=== PATIENT | female | born 1980 | race Caucasian/White ===

== ENCOUNTER 2017-09-03 15:03 | Inpatient (IN) | payer MEDICAID ==
[~2017-09-03] VITALS: Ht 30.5 cm; Wt 53.1 kg
[2017-09-03] MEDS ORDERED: SODIUM CHLORIDE 0.9% 1,000 ML IV ONE (15:26)
[2017-09-03] MEDS ORDERED: NALOXONE HCL 1 MG/ML 2ML VIAL IV ONE (15:30)
[2017-09-03 16:28] LABS: BASOPHILS % 0.6 % (0.0-2.0); EOSINOPHILS % 0.2 % (0.0-5.0); HEMATOCRIT. 34.9 % (36.0-48.0); HEMOGLOBIN. 11.6 g/dL (12.0-16.0); LYMPHOCYTES % 16.8 % (20.0-50.0); MEAN CORPUSCULAR HEMOGLOBIN 28.1 pg (28.0-32.0); MEAN CORPUSCULAR VOLUME 84.6 fL (81.0-99.0); MEAN PLATELET VOLUME 8.4 fl (7.4-10.4); NEUTROPHILS % 74.4 % (40.0-76.0); PLATELET 244 x1000/uL (130-400); RED BLOOD CELL COUNT 4.12 mill/uL (4.2-5.4); RED CELL DISTRIBUTION WIDTH 15.6 % (11.6-14.6)
[2017-09-03 16:35] LABS: CHLORIDE 106 mEq/L (98-107)
[2017-09-03 16:38] LABS: HCG SCREEN NEGATIVE
[2017-09-03 16:39] LABS: AMMONIA 32 uMol/L (<32); ETHANOL BLOOD < 10 mg/dL
[2017-09-03 17:06] LABS: CLARITY URINE CLOUDY (CLEAR); COLOR URINE YELLOW (YELLOW); KETONES URINE NEGATIVE (NEGATIVE); LEUKOCYTE ESTERASE URINE 3+ (NEGATIVE); NITRITE URINE POSITIVE (NEGATIVE); OCCULT BLOOD URINE 3+ (NEGATIVE); PROTEIN URINE TRACE (NEGATIVE); SPECIFIC GRAVITY URINE 1.008 (1.005-1.030); UROBILINOGEN URINE 0.2 E.U./dL (0.2-1.0)
[2017-09-03 17:15] LABS: *BENZODIAZEPINES SCREEN URINE NEGATIVE (NEGATIVE); *COCAINE SCREEN URINE NEGATIVE (NEGATIVE); METHADONE URINE SCREEN NEGATIVE (NEGATIVE); OPIATES URINE SCREEN NEGATIVE (NEGATIVE); PHENCYCLIDINE URINE SCREEN NEGATIVE (NEGATIVE)
[2017-09-03 17:17] LABS: *BARBITURATES SCREEN URINE NEGATIVE (NEGATIVE); CANNABINOID URINE SCREEN NEGATIVE (NEGATIVE)
[2017-09-03 17:21] LABS: *AMPHETAMINES SCREEN URINE PRESUMTIVE POSITIVE (NEGATIVE)
[2017-09-03] MEDS ORDERED: KCL 20MEQ/100ML PREMIX 100 ML IV ONE (17:45)
[2017-09-03] MEDS ORDERED: CEFTRIAXONE 1 G PREMIX 50 ML IV ONE (17:45)
[2017-09-03] MEDS ORDERED: LORAZEPAM 2MG/ML CPJ IV ONE (20:00)
[2017-09-04] MEDS ORDERED: CEFTRIAXONE 1 G PREMIX 50 ML IV ONE (14:00)
[2017-09-04] MEDS ORDERED: DOCUSATE SODIUM 100MG CAPSULE PO PRN (15:15)
[2017-09-04] MEDS ORDERED: GUAIFENESIN 200MG/10ML SUGAR FREE UDC PO PRN (15:15)
[2017-09-04] MEDS ORDERED: NA PHOS,M-B/NA PHOS,DI-BA ENEMA 118ML PR PRN (15:15)
[2017-09-04] MEDS ORDERED: DIPHENHYDRAMINE 50MG/ML VIAL IV PRN (15:15)
[2017-09-04] MEDS ORDERED: IPRATROPIUM/ALBUTEROL 0.5-3(2.5)MG/3ML NEB INH PRN (15:15)
[2017-09-04] MEDS ORDERED: LORAZEPAM 0.5MG TABLET PO PRN (15:15)
[2017-09-04] MEDS ORDERED: MAGNESIUM/ALUMINUM HYDROXIDE/SIMETHICONE 30ML UDC PO PRN (15:15)
[2017-09-04] MEDS ORDERED: NITROGLYCERIN 0.4MG TABLET SL SL PRN (15:15)
[2017-09-04] MEDS ORDERED: HALOPERIDOL LACTATE 5MG/ML VIAL IM ONE (15:15)
[2017-09-04] MEDS ORDERED: CLONIDINE 0.1MG TABLET PO PRN (15:15)
[2017-09-04] MEDS ORDERED: ACETAMINOPHEN 325MG TABLET PO PRN (15:15)
[2017-09-04] MEDS ORDERED: HALOPERIDOL LACTATE 5MG/ML VIAL IM PRN (15:15)
[2017-09-04] MEDS ORDERED: KETOROLAC 15MG/ML VIAL IV PRN (15:15)
[2017-09-04] MEDS ORDERED: ONDANSETRON HCL 4MG/2ML VIAL IV PRN (15:15)
[2017-09-04 16:00] VITALS: BP 121/92
[2017-09-04] MEDS ORDERED: ONDANSETRON 4MG ODT PO PRN (16:15)
[2017-09-04] MEDS ORDERED: LEVOFLOXACIN 500MG PREMIX 100 ML IV SCH (18:00)
[2017-09-04 20:00] VITALS: BP 112/78
[2017-09-04] MEDS ORDERED: MVI, ADULT NO.1 10 ML, FOLIC ACID 1 MG, THIAMINE HCL 100 MG in SODIUM CHLORIDE 0.9% 1,0... IV NR ×4 (20:00)
[2017-09-04] MEDS ORDERED: ZOLPIDEM TARTRATE 5MG TABLET PO PRN (21:00)
[2017-09-04] MEDS: FAMOTIDINE 20MG TABLET PO SCH (21:00)
[2017-09-05] VITALS: BP 110/77
[2017-09-05 04:00] VITALS: BP 105/72
[2017-09-05 07:58] VITALS: BP 144/83
[2017-09-05] MEDS: FAMOTIDINE 20MG TABLET PO SCH (08:24)
[2017-09-05 10:26] LABS: CHLORIDE 110 mEq/L (98-107)
== END 2017-09-05 11:35 | disposition home or self-care (01) | DRG 816 ==
LOC: ER 16:20 → EDBD 16:20 → 7WST 09-04 13:45 → EDBEDREQTM 09-04 13:47 → EDBEDREQ 09-04 13:47 → ENRESERV 09-04 14:03
PROVIDERS: ADMIT Internal Medicine; ATTEND Internal Medicine
DX: T40.1X1A Poisoning by heroin, accidental (unintentional), initial encounter (principal); G93.40 Encephalopathy, unspecified; E44.1 Mild protein-calorie malnutrition; Z68.45 Body mass index [BMI] 70 or greater, adult; E87.6 Hypokalemia; N39.0 Urinary tract infection, site not specified; F15.10 Other stimulant abuse, uncomplicated; Z78.1 Physical restraint status; Y92.89 Other specified places as the place of occurrence of the external cause
CPT/HCPCS: 36415; 70450; 71045; 74018; 80048; 80053; 80305; 80307; 80329; 81003; 82140; 82962; 84703; 85025; 87077; 87086; 87186; 93005; 96365; 96366; 96368; 96375; 99285; G0482; J0696; J1630; J1956; J2060; J2310; J3411; J3480; J3490; J7030; J7050